=== PATIENT | male | born 1990 | race Caucasian/White ===

== ENCOUNTER 2017-01-09 04:21 | Emergency (ER) | payer OTHER ==
[~2017-01-09 04:21] MED LIST: AMOXICILLIN875 MG PO; DAYQUIL COLD/FL1 SGL PO; DELTASONE20 MG PO; MUCINEX DM 30 M1 TER PO; MUCINEX1200 MG PO; NASONEX0.05 MG/Ac NAS; ORPHENADRINE C100 MG PO; PREDNICOT20 MG PO; PROAIR HFA0.09 MG/Ac INH
[2017-01-09 04:33] VITALS: BP 133/71
[2017-01-09] MEDS ORDERED: AMOXICILLIN875 M1 PO (05:14)
[2017-01-09] MEDS ORDERED: PREDNISONE20 M1 PO (05:14)
[2017-01-09] MEDS ORDERED: VICODIN 5-3001 EACH PO (05:14)
[2017-01-09] MEDS ORDERED: AFRIN30 ML NASB (05:14)
--- NOTE | 2017-01-09 05:16 | ED EAR COMPLAINT ---
History of Present Illness General Chief Complaint: Ear Complaints Stated Complaint: SWELLING WITHIN EARS Source: patient, old records Exam Limitations: no limitations Vital Signs & Intake/Output Vital Signs & Intake/Output Vital Signs Date Time Temp Pulse Resp B/P Pulse O2 O2 Flow FiO2 Ox Delivery Rate 01/09 0433 97.0 78 20 133/71 98 Room Air Allergies Coded Allergies: MDX - Aspirin (ASPIRIN) (ANAPHYLAXIS 10/04/15) MDX - NUTS (NUTS) (ANAPYLAXIS 10/04/15) MDX - Nsaid (NSAID) (ANAPHYLAXIS 10/04/15) Reconcile Medications Albuterol Sulfate (Proair Hfa) 0.09 MG/Actuation AMADOU 1 PUFF INH 4 TIMES/DAY PRN DYSPNEA Amoxicillin 875 MG TABLET 1 TAB PO BID INFECTION Amoxicillin 875 MG TABLET 1 TAB PO BID sinusitis Apap/Dm Hydrobrom/Phenyleph (Dayquil Cold/Flu 325 MG-10 MG-5 MG) (Unknown Strength) SGL 10 ML PO DAILY CHEST CONGESTION (Reported) Guaifenesin (Mucinex) 1,200 MG TAB.ER.12H 1 TAB PO BID CHEST CONGESTION ( Reported) GUAIFENESIN/DEXTROMETHORPHAN (Mucinex Dm ER 600-30 MG Tablet) 600 MG-30 MG TAB.ER.12H 1 TAB PO Q12P PRN CHEST CONGESTION (Reported) Hydrocodone/Acetaminophen (Vicodin 5-300 MG Tablet) 5 MG-300 MG TABLET 1 TAB PO Q6P PRN severe pain Mometasone Furoate (Nasonex) 0.05 MG/Actuation SPR 2 SPRAY CARLOS DAILY SINUS CONGESTION Oxymetazoline HCl (Afrin) 0.05 % SPRAY 2 SPRAY NASB BID sinusitis Prednisone (Prednicot) 20 MG TAB 2 TAB PO DAILY INFLAMMATION Prednisone 20 MG TABLET 1 TAB PO BID sinusitis Triage Note: PER PT BILAT EARS CLOGGED AND POPPING. PER PT OTC MEDS NOT WORKING, EXCEPT TYLENOL Triage Nurses Notes Reviewed? yes Onset: 2 days Duration: day(s):, constant, continues in ED, getting worse Timing: recent history Injury Environment: home Severity: severe No Modifying Factors: none Associated Symptoms: cough HPI: 2 days prior to admission patient complains of nasal congestion nonproductive cough sore throat and sinus pain increasing ear pain. He denies fever chills chest pain shortness of breath dysuria rash bleeding headache. Past History Travel History Traveled to [place] past 21 day No Medical History Any Pertinent Medical History? 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 No Review of Systems Review of Systems Constitutional: Reports: see HPI, malaise. EENTM: Reports: see HPI, ear pain, nasal congestion, throat pain. Respiratory: Reports: see HPI, cough. Cardiovascular: Reports: no symptoms. GI: Reports: no symptoms. Genitourinary: Reports: no symptoms. Musculoskeletal: Reports: no symptoms. Skin: Reports: no symptoms. Neurological/Psychological: Reports: no symptoms. Hematologic/Endocrine: Reports: no symptoms. Immunologic/Allergic: Reports: no symptoms. All Other Systems: Reviewed and Negative Physical Exam Physical Exam General Appearance: well developed/nourished, mild distress Head: atraumatic Eyes: Bilateral: normal appearance, PERRL, EOMI. Ears: Bilateral: canal normal, Tympanic red, Tympanic bulging. Nose: discharge, sinus tenderness Mouth/Throat: pharynx swelling Neck: normal inspection, supple Cardiovascular/Respiratory: normal breath sounds, regular rate/rhythm Back: normal inspection, normal range of motion Neurologic/Psych: awake, alert, oriented x 3, normal mood/affect Skin: intact, normal color, warm/dry Progress Differential Diagnoses I considered the following diagnoses in my evaluation of the patient: Sinusitis otitis media otitis externa Plan of Care: Current Medications Sig/Ronaldo Start time Last Medication Dose Stop Time Status Admin Amoxicillin 750 MG ONCE ONE 01/09 515 UNVr (Amoxil) 01/09 516 Oxymetazoline HCl 2 SPRAY ONCE ONE 01/09 515 UNVr (Afrin) 01/09 516 Prednisone 60 MG ONCE ONE 01/09 515 UNVr 01/09 516 Initial ED EKG: none Departure Departure Time of Disposition: 05 Disposition: HOME OR SELF CARE Condition: Stable Clinical Impression Primary Impression: Otitis media Qualifiers: Otitis media type: unspecified Laterality: bilateral Chronicity: unspecified Qualified Code: H66.93 - Otitis media, unspecified, bilateral Secondary Impressions: Sinusitis, acute Qualifiers: Sinusitis location: unspecified location Recurrence: not specified as recurrent Qualified Code: J01.90 - Acute sinusitis, unspecified Referrals: ZBIGNIEW THOMPSON MD (PCP/Family) Departure Forms: Customer Survey General Discharge Information Prescriptions: Current Visit Scripts Amoxicillin 1 TAB PO BID #20 TAB Prednisone 1 TAB PO BID #10 TAB Hydrocodone/Acetaminophen (Vicodin 5-300 MG Tablet) 1 TAB PO Q6P PRN severe pain #15 TAB Oxymetazoline HCl (Afrin) 2 SPRAY NASB BID #30 ML
== END 2017-01-09 05:24 ==
LOC: ERH 04:21
DX: H66.93 Otitis media, unspecified, bilateral (principal); J01.90 Acute sinusitis, unspecified

== ENCOUNTER 2017-01-15 18:35 | Emergency (ER) | payer OTHER ==
[~2017-01-15] VITALS: Ht 170.2 cm; Wt 104.3 kg
[~2017-01-15 18:35] MED LIST changes: +AFRIN30 ML NASB; +AMOXICILLIN875 M1 PO; +PREDNISONE20 M1 PO; +VICODIN 5-3001 EACH PO
--- NOTE | 2017-01-15 21:19 | ED THROAT/DENTAL COMPLAINT ---
History of Present Illness General Chief Complaint: Sore Throat, Dental Pain Stated Complaint: SORE THROAT, DIFFICULTY SWALLOWING Source: patient, family, old records Exam Limitations: no limitations Vital Signs & Intake/Output Vital Signs & Intake/Output Vital Signs Date Time Temp Pulse Resp B/P Pulse O2 O2 Flow FiO2 Ox Delivery Rate 01/15 2146 98.4 82 18 137/74 98 Room Air Room Air 01/15 1907 98.5 88 18 157/81 99 Room Air Allergies Coded Allergies: MDX - Aspirin (ASPIRIN) (ANAPHYLAXIS 10/04/15) MDX - NUTS (NUTS) (ANAPYLAXIS 10/04/15) MDX - Nsaid (NSAID) (ANAPHYLAXIS 10/04/15) Reconcile Medications Albuterol Sulfate (Proair Hfa) 0.09 MG/Actuation AMADOU 1 PUFF INH 4 TIMES/DAY PRN DYSPNEA Amoxicillin 875 MG TABLET 1 TAB PO BID INFECTION Amoxicillin 875 MG TABLET 1 TAB PO BID sinusitis Apap/Dm Hydrobrom/Phenyleph (Dayquil Cold/Flu 325 MG-10 MG-5 MG) (Unknown Strength) SGL 10 ML PO DAILY CHEST CONGESTION (Reported) Guaifenesin (Mucinex) 1,200 MG TAB.ER.12H 1 TAB PO BID CHEST CONGESTION ( Reported) GUAIFENESIN/DEXTROMETHORPHAN (Mucinex Dm ER 600-30 MG Tablet) 600 MG-30 MG TAB.ER.12H 1 TAB PO Q12P PRN CHEST CONGESTION (Reported) Hydrocodone/Acetaminophen (Provo 5-325 Tablet) 5 MG-325 MG TABLET 1 TAB PO BID PRN pain Hydrocodone/Acetaminophen (Vicodin 5-300 MG Tablet) 5 MG-300 MG TABLET 1 TAB PO Q6P PRN severe pain Mometasone Furoate (Nasonex) 0.05 MG/Actuation SPR 2 SPRAY CARLOS DAILY SINUS CONGESTION Oxymetazoline HCl (Afrin) 0.05 % SPRAY 2 SPRAY NASB BID sinusitis Prednisone (Prednicot) 20 MG TAB 2 TAB PO DAILY INFLAMMATION Prednisone 20 MG TABLET 1 TAB PO BID sinusitis Triage Note: PT TO TRIAGE WITH C/O SORE THROAT x2DAYS. PT CARRENTLY ON AMOXICILLIN FOR EAR INFECTION. AFEBRILE IN TRIAGE,VSS. STREP SWAB OBTAINED IN TRIAGE AND SENT TO LAB. Triage Nurses Notes Reviewed? yes Onset: Gradual Duration: week(s): (1), continues in ED, getting worse Timing: recent history Injury Environment: home Severity: mild, moderate Severity Numbers: 6 No Modifying Factors: none Associated Symptoms: ear pain, rhinorrhea HPI: 26-year-old male no medical history presents to emergency room complaining of progressively worsening sore throat over the past 1 week. He was seen here last week and was started on amoxicillin and prednisone and given Vicodin for pain. He has 4 days left of the amoxicillin and states she ran out of Vicodin which was helping with his sore throat getting worse now. He denies change in his voice difficulty swallowing, drooling fever chills cough abdominal pain chest pain. There are no other modifying factors or associated symptoms otherwise. No sick contacts recent travel pain is aching and constant (DESIREE SALINAS) Past History Travel History Traveled to [place] past 21 day No Medical History Any Pertinent Medical History? 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 No (DESIREE SALINAS) Review of Systems Review of Systems Constitutional: Reports: see HPI. All Other Systems: Reviewed and Negative Comments Review of systems: See HPI, All other systems negative. Constitutional, no chills no fever, no malaise HEENT: sore throat congestion, ear pain Cardiovascular: No chest pain , no palpitation Skin, no jaundice no rashes, no change in skin Respiratory: No dyspnea no cough no sputum GI: No nausea no vomiting, no diarrhea, : No dysuria Muscle skeletal: No joint pain, no back pain, no neck pain, Neurologic: No numbness no headache Psych: No stress . Heme/endocrine: No bruising no bleeding Immunology: No lymphadenopathy (DESIREE SALINAS) Physical Exam Physical Exam General Appearance: well developed/nourished, no apparent distress, alert, awake , comfortable Mouth/Throat: normal mouth inspection, pharynx normal Comments: Well-developed well-nourished patient in no apparent distress. Head/Face: Atraumatic, no maxillary/frontal sinus tenderness, no facial swelling Eyes: PERRL, EOMI, no conjunctival injection. No nystagmus Ear:External auditory canal and Tympanic membranes clear, no erythema, no FB. Nose: atraumatic.Normal inspection: No bleeding, no septal hematoma Throat: Moist mucous membranes.Pharynx normal. No pharyngeal erythema/exudate seen. No stridor/drooling or assymetry. No swelling or edema. No uvula displacement no trismus Neck: Supple, no lymphadenopathy, FROM Back: FROM, Nontender Cardiovascular: Regular rate and rhythms no murmurs rubs Respiratory: Chest nontender.There were no bony deformities, no asymmetry. No respiratory distress. Patient speaking in full complete sentences. Breath sounds clear to auscultation bilaterally: NO W/R/R Extremities: full range of motion Neuro: Alert and oriented x3 Skin: Warm & dry;No appreciable rash on exposed skin Psych: Mood affect normal, normal memory normal judgment. Core Measures ACS in differential dx? No Severe Sepsis Present: No Septic Shock Present: No (DESIREE SALINAS) Progress Differential Diagnosis: epiglottitis, Ludwigs angina, odontogenic abscess, murtaza- tonsillar abscess, stomatitis/gingivitis, strep pharyngitis, mono Plan of Care: Orders Procedure Date/time Status THROAT CULTURE W/QUICK STREP 01/15 1902 Active Discussed with patient his throat swab results E for supportive care with the amoxicillin Tylenol Motrin cleared for discharge (DESIREE SALINAS) Departure Departure Time of Disposition: 2139 Disposition: HOME OR SELF CARE Condition: Stable Clinical Impression Primary Impression: Viral syndrome Referrals: ZBIGNIEW THOMPSON MD (PCP/Family) Additional Instructions: Follow-up with your primary care physician. Saltwater gargles drink plenty of fluids Tylenol Motrin, Vicodin for breakthrough pain. Use caution as this is a narcotic highly addictive and will make you drowsy no driving or drinking alcohol while taking. This prescription was sent to your pharmacy Finished a course of advised her currently on Departure Forms: Customer Survey General Discharge Information Prescriptions: Current Visit Scripts Hydrocodone/Acetaminophen (Provo 5-325 Tablet) 1 TAB PO BID PRN pain #8 TAB (DESIREE SALINAS) PA/HYDROSTATIC TESTER Co-Sign Statement Statement: ED Attending supervision documentation- [] I saw and evaluated the patient. I have also reviewed all the pertinent lab results and diagnostic results. I agree with the findings and the plan of care as documented in the PA's/HYDROSTATIC TESTER's documentation. x I have reviewed the ED Record and agree with the PA's/HYDROSTATIC TESTER's documentation. [] Additions or exceptions (if any) to the PAs/HYDROSTATIC TESTER's note and plan are summarized below: [] (FRANSISCO DOVER,ANNITA)
[2017-01-15] MEDS ORDERED: NORCO 5-325 TA1 EACH PO (21:41)
[2017-01-15 21:46] VITALS: BP 137/74
== END 2017-01-15 21:47 ==
LOC: ERH 18:35
DX: B34.9 Viral infection, unspecified (principal)

== ENCOUNTER 2017-12-16 07:48 | Emergency (ER) | payer SELFPAY ==
[~2017-12-16] VITALS: Ht 172.7 cm; Wt 104.3 kg
[~2017-12-16 07:48] MED LIST changes: +NORCO 5-325 TA1 EACH PO
[2017-12-16 07:51] VITALS: BP 157/74
--- NOTE | 2017-12-16 07:58 | ED GI/GU/ABDOMINAL COMPLAINT ---
History of Present Illness General Chief Complaint: Abdominal Pain/Flank Pain Stated Complaint: L SIDE ABD PAIN Source: patient Exam Limitations: no limitations Vital Signs & Intake/Output Vital Signs & Intake/Output Vital Signs Date Time Temp Pulse Resp B/P B/P Pulse O2 O2 Flow FiO2 Mean Ox Delivery Rate 12/16 0751 98.6 67 18 157/74 98 Room Air Allergies Coded Allergies: NSAIDS (Non-Steroidal Anti-Inflamma (ANAPHYLAXIS 12/16/17) aspirin (ANAPHYLAXIS 12/16/17) nut - unspecified (NUTS - ANAPHYLAXIS 12/16/17) Reconcile Medications Albuterol Sulfate (Proair Hfa) 0.09 MG/Actuation AMADOU 1 PUFF INH 4 TIMES/DAY PRN DYSPNEA Amoxicillin 875 MG TABLET 1 TAB PO BID INFECTION Amoxicillin 875 MG TABLET 1 TAB PO BID sinusitis Apap/Dm Hydrobrom/Phenyleph (Dayquil Cold/Flu 325 MG-10 MG-5 MG) (Unknown Strength) SGL 10 ML PO DAILY CHEST CONGESTION (Reported) Guaifenesin (Mucinex) 1,200 MG TAB.ER.12H 1 TAB PO BID CHEST CONGESTION ( Reported) GUAIFENESIN/DEXTROMETHORPHAN (Mucinex Dm ER 600-30 MG Tablet) 600 MG-30 MG TAB.ER.12H 1 TAB PO Q12P PRN CHEST CONGESTION (Reported) Hydrocodone/Acetaminophen ([place] 5-325 Tablet) 5 MG-325 MG TABLET 1 TAB PO BID PRN pain Hydrocodone/Acetaminophen (Vicodin 5-300 MG Tablet) 5 MG-300 MG TABLET 1 TAB PO Q6P PRN severe pain Mometasone Furoate (Nasonex) 0.05 MG/Actuation SPR 2 SPRAY CARLOS DAILY SINUS CONGESTION Oxymetazoline HCl (Afrin) 0.05 % SPRAY 2 SPRAY NASB BID sinusitis Pantoprazole Sodium (Protonix) 20 MG TABLET.DR 1 TAB PO BID GASTRITIS Prednisone (Prednicot) 20 MG TAB 2 TAB PO DAILY INFLAMMATION Prednisone 20 MG TABLET 1 TAB PO BID sinusitis Triage Note: 26 YO MALE TO TRIAGE C/O LLQ PAIN X4 DAYS. DENIES NVD. DENIES URIARY S/S. Triage Nurses Notes Reviewed? yes Onset: Abrupt Duration: day(s): (3) Timing: recent history Location: [facility] HPI: 26 year old male presents to the ER for chief complaint of left sided abdominal pain for the past 3 days. He denies fever, chills, nausea or vomiting. Last BM was within normal limits yesterday, normal urination. Patient states that it seems to get worse when he bends down but has been constant in general. His appetite has been relatively normal. No radiation of the pain to the back. No history of similar symptoms in the past before. He does drink alcohol daily but has not had anything in the past 3 or 4 days since the pain started. He states prior to the pain he ate half of a steak sandwich which did not taste bad. No vomiting after that. Past History Travel History Traveled to [place] past 21 day No Medical History Any Pertinent Medical History? 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 No Review of Systems Review of Systems Constitutional: Denies: chills, fever. EENTM: Reports: no symptoms. Respiratory: Reports: no symptoms. Cardiovascular: Reports: no symptoms. GI: Reports: abdominal pain. Denies: bloating, constipation, diarrhea, nausea, vomiting. Genitourinary: Denies: discharge, dysuria, frequency. Musculoskeletal: Denies: back pain. Skin: Reports: no symptoms. Neurological/Psychological: Reports: no symptoms. Hematologic/Endocrine: Denies: bruising, bleeding, polyuria, polydipsia. Immunologic/Allergic: Reports: no symptoms. All Other Systems: Reviewed and Negative Physical Exam Physical Exam General Appearance: well developed/nourished, alert, awake, mild distress, moderate distress, obese Head: atraumatic, normal appearance Eyes: Bilateral: normal appearance, PERRL, normal inspection. Ears, Nose, Throat, Mouth: hearing grossly normal, moist mucous membrane Neck: normal inspection, supple, full range of motion Respiratory: normal breath sounds, chest non-tender, no respiratory distress Cardiovascular: regular rate/rhythm, normal peripheral pulses Peripheral Pulses: 2+ radial (R), 2+ radial (L) Gastrointestinal: normal bowel sounds, soft, tenderness ([facility]) Male Genitals: normal genitalia Back: normal inspection, normal range of motion Extremities: normal range of motion Neurologic/Psych: no motor/sensory deficits, awake, alert, oriented x 3, normal gait, normal mood/affect Skin: intact, normal color, warm/dry Core Measures ACS in differential dx? No Sepsis Present: No Sepsis Focused Exam Completed? No Progress Differential Diagnosis: diverticulitis, gastritis, pancreatitis, peptic ulcer, PUD/GERD, ureterolithiasis, UTI/pyelo Plan of Care: Orders Procedure Date/time Status LIPASE 12/16 805 Complete LACTIC ACID 12/16 08 Complete COMPREHENSIVE METABOLIC PANEL 12/16 805 Complete CBC WITHOUT DIFFERENTIAL 12/16 805 Complete URINALYSIS 12/16 075 Complete Laboratory Tests 12/16/17 0825: Urine Color YEL, Urine Clarity CLEAR, Urine pH 6.5, Ur Specific [place] 1.025, Urine Protein NEG, Urine Ketones NEG, Urine Nitrite NEG, Urine Bilirubin NEG, Urine Urobilinogen 0.2, Ur Leukocyte Esterase NEG, Ur Microscopic EXAM NOT REQUIRED, Urine Hemoglobin NEG, Urine Glucose NEG 12/16/17 0818: Anion Gap 15, Estimated GFR > 60, BUN/Creatinine Ratio 15.6, Glucose 94, Lactic Acid 1.4, Calcium 10.0, Total Bilirubin 1.0, AST 36, ALT 61, Alkaline Phosphatase 68, Total Protein 7.7, Albumin 4.9, Globulin 2.8, Albumin/Globulin Ratio 1.8, Lipase 177, CBC w Diff NO MAN DIFF REQ, RBC 5.27, MCV 83.2, MCH 28.7, RDW 12.8, MPV 8.9, Gran % 56.0, Lymphocytes % 33.6, Monocytes % 7.3, Eosinophils % 2.6, Basophils % 0.5, Absolute Granulocytes 3.1, Absolute Lymphocytes 1.8, Absolute Monocytes 0.4, Absolute Eosinophils 0.1, Absolute Basophils 0, PUBS MCHC 34.5 IMPROVED SYMPTOMS AFTER IV TYLENOL. LABS PENDING. LABS WNL, STILL MILD ABDOMINAL PAIN. CT ORDERED. RESULTS OF CT D/W PATIENT. GI COCKTAIL PROVIDED. COPY OF CT REORT GIVEN, APPENDICOLITH EXPLAINED. NO RLQ PAIN ON EXAMINATION. ADVISED BLAND DIET X 2 DAYS, ADVANCE TOLERATED. WILL FOLLOW UP WITH PCP IN OFFICE, GI REFERRAL GIVEN. Diagnostic Imaging: Viewed by Me: CT Scan. Discussed w/RAD: CT Scan. Radiology Impression: PATIENT: ANA REYES PRESENT AGE: 26 PATIENT ACCOUNT NO: [id number] : 91 LOCATION: [facility] ORDERING PHYSICIAN: Abby Sharma MD SERVICE DATE: 12/16/17 EXAM TYPE: CAT - CT ABD & PELVIS W IV CONTRAST EXAMINATION: CT ABDOMEN AND PELVIS WITH CONTRAST CLINICAL INFORMATION: Left upper quadrant pain for 3 days, query diverticulitis. COMPARISON: There are no prior studies for comparison. TECHNIQUE : Multidetector volumetric imaging was performed of the abdomen and pelvis following IV administration of 95 mL of Optiray 360 intravenous contrast. Sagittal and coronal reformatted images were obtained on the technologist's workstation. DLP: 447.09 mGy-cm FINDINGS: LUNG BASES: The visualized lung bases are unremarkable. LIVER, GALLBLADDER, AND BILIARY TREE: The liver is normal in size, shape, and attenuation. No focal hepatic lesion or biliary ductal dilatation is present. The gallbladder is unremarkable with no evidence of radiopaque gallstones, gallbladder wall thickening, or obvious pericholecystic inflammatory changes. PANCREAS: Unremarkable. SPLEEN: Unremarkable. ADRENAL GLANDS: Unremarkable. KIDNEYS AND URETERS: The kidneys are normal in size, shape , and attenuation. No hydronephrosis, hydroureter, or calculi seen. No perinephric stranding. BLADDER: Unremarkable. GASTROINTESTINAL TRACT: A few scattered diverticuli are present, however no inflamed diverticuli are are noted and there are no inflammatory changes present throughout the mesenteric fat. The small bowel loops are unremarkable. The appendix is normal in caliber measuring 5 mm in diameter. Incidental note is made of a 2 mm appendicolith present within the mid appendix. No periappendiceal inflammatory changes are present. ABDOMINAL WALL: No significant hernia is appreciated. LYMPH NODES: No pathologically enlarged lymph nodes are present. VASCULAR: Unremarkable. PELVIC VISCERA: The prostate gland is not enlarged.. OSSEOUS STRUCTURES: No osseous lesions are present. IMPRESSION: 1. Although a few scattered diverticuli are identified, there is no evidence of diverticulitis at this time. 2. Incidental finding is a 2 mm appendicolith present within the mid appendiceal lumen, there is no evidence of inflammation of the appendix, which is normal in caliber with no periappendiceal inflammatory changes. DICTATED BY: Dee Johnston MD DATE/ TIME DICTATED:12/16/17923 LEARNING SOLUTIONS SPECIALIST:MARKOS DATE/TIME TRANSCRIBED: 12/16/17923 CONFIDENTIAL, DO NOT COPY WITHOUT APPROPRIATE AUTHORIZATION. < Electronically signed in Other Vendor System> SIGNED BY: Dee Johnston MD 12/16/17 0936 Initial ED EKG: none Departure Departure Time of Disposition: 952 Disposition: HOME OR SELF CARE Condition: Stable Clinical Impression Primary Impression: Abdominal pain Referrals: Etienne DOVER,[place] (PCP/Family) Ashley DOVER,Moo Barlow Additional Instructions: TAKE THE PROTONIX DIRECTED BLAND DIET AND ADVANCE TOLERATED FOLLOW UP WITH YOUR DOCTOR IN THE OFFICE FOLLOW UP WITH THE GI DOCTOR LISTED IF YOU CONTINUE TO HAVE PERSISTENT SYMPTOMS RETURN IF WORSE Departure Forms: Customer Survey General Discharge Information Prescriptions: Current Visit Scripts Pantoprazole Sodium (Protonix) 1 TAB PO BID #20 TAB ED Attending Observation Initial Observation Note: I have seen and personally examined ANA REYES on 12/16/17 at 1022. I agree with the current emergency department documentation. The disposition (admission or discharge) is uncertain at this time, he needs a period of observation for the following reason(s): The ED Nurse caring for this patient has been personally informed as to what the patient is being observed for.
[2017-12-16 08:23] LABS: ABSOLUTE BASOPHIL COUNT 0 /CUMM (0.0-0.2); ABSOLUTE EOSINOPHIL COUNT 0.1 /CUMM (0.0-0.7); ABSOLUTE GRANULOCYTE CT 3.1 /CUMM (1.4-6.5); ABSOLUTE LYMPH COUNT 1.8 /CUMM (1.2-3.4); ABSOLUTE MONOCYTE COUNT 0.4 /CUMM (0.10-0.60); BASOPHIL % 0.5 % (0.0-2.0); EOSINOPHIL % 2.6 % (0-5); HEMATOCRIT 43.9 % (42-52); MEAN CORPUSCULAR HGB 28.7 PG (27.0-31.0); MEAN CORPUSCULAR HGB CONC 34.5 G/DL (33.0-37.0); MEAN CORPUSCULAR VOLUME 83.2 FL (80.0-94.0); MEAN PLATELET VOLUME 8.9 FL (7.4-10.4); PLATELET COUNT 215 /CUMM (130-400); RBC DISTRIBUTION WIDTH 12.8 % (11.5-14.5); RED BLOOD CELL CT 5.27 /CUMM (4.70-6.10); WHITE BLOOD CELL COUNT 5.5 /CUMM (4.8-10.8)
--- NOTE | 2017-12-16 09:36 | CT SCAN REPORT ---
EXAMINATION: CT ABDOMEN AND PELVIS WITH CONTRAST CLINICAL INFORMATION: Left upper quadrant pain for 3 days, query diverticulitis. COMPARISON: There are no prior studies for comparison. TECHNIQUE: Multidetector volumetric imaging was performed of the abdomen and pelvis following IV administration of 95 mL of Optiray 360 intravenous contrast. Sagittal and coronal reformatted images were obtained on the technologist's workstation. DLP: 447.09 mGy-cm FINDINGS: LUNG BASES: The visualized lung bases are unremarkable. LIVER, GALLBLADDER, AND BILIARY TREE: The liver is normal in size, shape, and attenuation. No focal hepatic lesion or biliary ductal dilatation is present. The gallbladder is unremarkable with no evidence of radiopaque gallstones, gallbladder wall thickening, or obvious pericholecystic inflammatory changes. PANCREAS: Unremarkable. SPLEEN: Unremarkable. ADRENAL GLANDS: Unremarkable. KIDNEYS AND URETERS: The kidneys are normal in size, shape, and attenuation. No hydronephrosis, hydroureter, or calculi seen. No perinephric stranding. BLADDER: Unremarkable. GASTROINTESTINAL TRACT: A few scattered diverticuli are present, however no inflamed diverticuli are are noted and there are no inflammatory changes present throughout the mesenteric fat. The small bowel loops are unremarkable. The appendix is normal in caliber measuring 5 mm in diameter. Incidental note is made of a 2 mm appendicolith present within the mid appendix. No periappendiceal inflammatory changes are present. ABDOMINAL WALL: No significant hernia is appreciated. LYMPH NODES: No pathologically enlarged lymph nodes are present. VASCULAR: Unremarkable. PELVIC VISCERA: The prostate gland is not enlarged.. OSSEOUS STRUCTURES: No osseous lesions are present. IMPRESSION: 1. Although a few scattered diverticuli are identified, there is no evidence of diverticulitis at this time. 2. Incidental finding is a 2 mm appendicolith present within the mid appendiceal lumen, there is no evidence of inflammation of the appendix, which is normal in caliber with no periappendiceal inflammatory changes.
[2017-12-16] MEDS ORDERED: PROTONIX20 M1 PO (09:54)
== END 2017-12-16 10:04 ==
LOC: ERH 07:48
PROVIDERS: Emergency Medicine
DX: R10.32 Left lower quadrant pain (principal)
CPT/HCPCS: 74177; 81003; 96374; J0131